=== PATIENT | male | born 1930 | race Caucasian/White ===

== ENCOUNTER 2017-03-06 17:06 | Inpatient (IN) | payer MEDICARE, BC ==
[~2017-03-06] VITALS: Ht 179.1 cm; Wt 80.5 kg
[~2017-03-06 17:06] MED LIST: ASPI81 PO; AVOD0.5C PO; MULT-65 PO; OMEP20TA PO; ROSU5 PO
[2017-03-06 17:20] VITALS: BP 156/70; PULSE 92; RESP 18; TEMP 98.1; O2SAT 98
[2017-03-06] MEDS ORDERED: ONDANSETRON HCL 4 MG/2 ML VIAL ONE (17:44)
[2017-03-06] MEDS ORDERED: ONDANSETRON HCL 4 MG/2 ML VIAL IV PUSH ONE ×2 (17:45→18:30)
[2017-03-06 18:07] VITALS: BP 159/74; PULSE 85; RESP 15; O2SAT 94
[2017-03-06] MEDS ORDERED: AVOD0.5C PO (18:11)
[2017-03-06] MEDS ORDERED: ASPI-437 PO (18:11)
[2017-03-06 18:52] LABS: AUTOMATED NEUTROPHIL # 6.8 TH/MM3 (1.8-7.7); BASOPHIL % 0.4 % (0.0-2.0); EOSINOPHIL # 0.3 TH/MM3 (0-0.4); EOSINOPHIL % 3.8 % (0.0-4.0); HEMO FLAGS DIFF FINAL; LYMPH % 8.7 % (9.0-44.0); LYMPHOCYTE # 0.7 TH/MM3 (1.0-4.8); MEAN CELL VOLUME 81.7 FL (80.0-100.0); MONO % 5.6 % (0.0-8.0); NEUT % 81.5 % (16.0-70.0); PLATELET COUNT 196 TH/MM3 (150-450); RED BLOOD COUNT 3.91 MIL/MM3 (4.50-5.90); RED CELL DISTRIBUTION WIDTH 16.9 % (11.6-17.2); WHITE BLOOD COUNT 8.4 TH/MM3 (4.0-11.0)
[2017-03-06 19:15] LABS: APTT (PATIENT) 20.7 SEC (24.3-30.1); PROTHROMBIN TIME - PATIENT 10.5 SEC (9.8-11.6)
[2017-03-06 19:21] LABS: BICARBONATE 25.1 MEQ/L (21.0-32.0); MAGNESIUM 2.4 MG/DL (1.5-2.5); POTASSIUM 4.1 MEQ/L (3.5-5.1)
--- NOTE | 2017-03-06 19:43 | RADRPT ---
EXAM DATE/TIME: 03/06/2017 19:32 [facility] COMPARISON: No previous studies available for comparison. INDICATIONS : Trauma; fall. RADIATION DOSE: 36.24 CTDIvol (mGy) MEDICAL HISTORY : Cardiovascular disease. Carcinoma, prostate. SURGICAL HISTORY : Appendectomy. Cholecystectomy.cardiac stents ENCOUNTER: Initial ACUITY: 1 day PAIN SCALE: 7/10 LOCATION: cranial TECHNIQUE: Multiple contiguous axial images were obtained of the head. Using automated exposure control and adj ustment of the mA and/or kV according to patient size, radiation dose was kept as low as reasonably a chievable to obtain optimal diagnostic quality images. DICOM format image data is available electro nically for review and comparison. FINDINGS: CEREBRUM: Mild cerebral atrophy is noted. No evidence of midline shift, mass lesion, hemorrhage or acute infarc tion. No extra-axial fluid collections are seen. POSTERIOR FOSSA: The cerebellum and brainstem are intact. The 4th ventricle is midline. The cerebellopontine angle i s unremarkable. EXTRACRANIAL: The visualized portion of the orbits is intact. SKULL: The calvaria is intact. No evidence of skull fracture. CONCLUSION: 1. Mild cerebral atrophy. 2. No acute infarct, acute hemorrhage, mass effect or extra-axial fluid collections. Vahe Saini MD on March 06, 2017 at 19:40 Board Certified Radiologist. This report was verified electronically.
--- NOTE | 2017-03-06 19:50 | RADRPT ---
EXAM DATE/TIME: 03/06/2017 19:06 [facility] COMPARISON: No previous studies available for comparison. INDICATIONS : Trauma/ Fall from ladder MEDICAL HISTORY : Prostate CA SURGICAL HISTORY : Appendectomy. Cholecystectomy. ENCOUNTER: Initial ACUITY: 1 day PAIN SCORE: 0/10 LOCATION: Left ankle FINDINGS: Three view exam was performed of the left ankle. The bony structures are in normal alignment. No ev idence of fracture, dislocation, or soft tissue swelling. The ankle mortise is intact. Achilles saskia caneal spurring is noted. No radiopaque foreign bodies are seen. Bony mineralization is normal. CONCLUSION: Achilles calcaneal spurring. No acute fracture or dislocation. Vahe Saini MD on March 06, 2017 at 19:48 Board Certified Radiologist. This report was verified electronically.
--- NOTE | 2017-03-06 19:52 | RADRPT ---
EXAM DATE/TIME: 03/06/2017 19:04 [facility] COMPARISON: No previous studies available for comparison. INDICATIONS : Trauma/ fall from ladder MEDICAL HISTORY : Prostate ca SURGICAL HISTORY : Appendectomy. Cholecystectomy. ENCOUNTER: Initial ACUITY: 1 day PAIN SCORE: 0/10 LOCATION: Bilateral chest FINDINGS: A single view of the chest demonstrates the lungs to be symmetrically aerated without evidence of mas s, infiltrate or effusion. The cardiomediastinal contours are unremarkable. Osseous structures are intact. CONCLUSION: No acute disease. Vahe aSini MD on March 06, 2017 at 19:51 Board Certified Radiologist. This report was verified electronically.
--- NOTE | 2017-03-06 20:01 | RADRPT ---
EXAM DATE/TIME: 03/06/2017 19:22 [facility] COMPARISON: KNEE LEFT COMPLETE (4VWS), March 06, 2017, 19:12. INDICATIONS : Trauma/ fall from a ladder MEDICAL HISTORY : Prostate CA SURGICAL HISTORY : Appendectomy. Cholecystectomy. ENCOUNTER: Initial ACUITY: 1 day PAIN SCORE: 0/10 LOCATION: Left Tib/Fib FINDINGS: There is an acute mildly displaced left proximal tibial and lateral tibial plateau fracture. CONCLUSION: 1. Acute mildly displaced left proximal tibial and lateral tibial plateau fracture. Vahe Saini MD on March 06, 2017 at 19:53 Board Certified Radiologist. This report was verified electronically.
--- NOTE | 2017-03-06 20:22 | RADRPT ---
EXAM DATE/TIME: 03/06/2017 19:12 [facility] COMPARISON: No previous studies available for comparison. INDICATIONS : Pain/ fall off of a ladder MEDICAL HISTORY : Prostate CA SURGICAL HISTORY : Appendectomy. Cholecystectomy. ENCOUNTER: Initial ACUITY: 1 day PAIN SCORE: 0/10 LOCATION: Left knee FINDINGS: There is an acute comminuted mildly displaced fracture involving then lateral tibial plateau which ex tends into the proximal tibia medially. A fat fluid level within the suprapatellar bursa. Mild dege nerative changes are noted involving the patellofemoral joint. CONCLUSION: 1. Acute comminuted mildly displaced fracture involving the lateral tibial plateau extending into th e proximal tibia more medially. 2. Fat fluid level within the suprapatellar bursa. 3. Mild degenerative changes involving the patellofemoral joint. Vahe Saini MD on March 06, 2017 at 19:59 Board Certified Radiologist. This report was verified electronically.
--- NOTE | 2017-03-06 20:23 | PD ---
HPI Chief Complaint: Injury Time Seen by Provider: 18:03 Travel History International Travel<30 days: No Contact w/Intl Traveler<30days: No Traveled to known affect area: No History of Present Illness HPI 87-year-old male that presents to the ED via [facility] for evaluation of fall and injury to his left leg. Patient reports that he was on a ladder of about 3 steps and he fell and his foot got stuck on the step stool and he landed on his left leg. Patient does have obvious deformity and swelling noted on the left leg. And is any numbness, tilling, weakness. Patient was brought here by ambulance. Patient was given 10 mg of morphine on the way here. Per patient the pain with movement is 4 out of 10. With movement and weightbearing is severe 10 out of 10. Per patient the only medical issue he has is a history of prostate cancer for which she follows with a doctor for this. He states that he has no other medical issues. Takes only aspirin. States that he did hit his head but did not lose consciousness. Patient has a very superficial laceration to the left cheek as well as to the left ear. Denies any arm pain. No back pain or neck pain. No hip pain. No problems with the right lower leg. No numbness, tilling, weakness. No bowel movement issues. No allergies to medication. PFSH Past Medical History Cancer: Yes (PROSTATE) High Cholesterol: Yes Coronary Artery Disease: Yes Diabetes: No Diminished Hearing: No Ulcer: Yes Past Surgical History Appendectomy: Yes Cholecystectomy: Yes Coronary Stent: Yes (4 CARDIAC STENTS) Social History Alcohol Use: No Tobacco Use: No Substance Use: No Allergies-Medications (Allergen,Severity, Reaction): Coded Allergies: No Known Allergies (Verified , 03/06/17) Reported Meds & Prescriptions Reported Meds & Active Scripts Active Reported Adult Low Dose Aspirin EC (Aspirin) 81 Mg Tablet.dr 81 Mg PO DAILY Avodart (Dutasteride) 0.5 Mg Cap 0.5 Mg PO DAILY Review of Systems Except as stated in HPI: all other systems reviewed are Neg Physical Exam Narrative GENERAL: SKIN: Warm and dry. HEAD: Atraumatic. Normocephalic. EYES: Pupils equal and round. No scleral icterus. No injection or drainage. ENT: No nasal bleeding or discharge. Mucous membranes pink and moist. Tongue is midline. No uvula deviation. NECK: Trachea midline. No JVD. CARDIOVASCULAR: Regular rate and rhythm. No murmurs, S3, S4. RESPIRATORY: No accessory muscle use. Clear to auscultation. Breath sounds equal bilaterally. GASTROINTESTINAL: Abdomen soft, non-tender, nondistended. Hepatic and splenic margins not palpable. MUSCULOSKELETAL: Extremities without clubbing, cyanosis, or edema. No obvious deformities. Patient has bruising and swelling on the left knee and has a lot of pain especially with flexion of the left knee. Full range of motion of the history of range of motion ankles. No injuries noted on the right knee other than a small abrasion. Patient does have a superficial cut to the left cheek which is about less than half a centimeter. Minimal bleeding. Patient also is an abrasion on the left ear. No lumbar, thoracic, cervical spine tenderness to palpation. Neurovascular intact. 2+ pulses bilaterally. NEUROLOGICAL: Awake and alert. No obvious cranial nerve deficits. Motor grossly within normal limits. Five out of 5 muscle strength in the arms and legs. Normal speech. PSYCHIATRIC: Appropriate mood and affect; insight and judgment normal. Data Data Last Documented VS Vital Signs Date Time Temp Pulse Resp B/P (MAP) Pulse Ox O2 Delivery O2 Flow Rate FiO2 03/06/17 18:07 85 15 159/74 (102) 94 Room Air 03/06/17 17:20 98.1 Orders Orders Knee, Complete (4vws) (03/06/17 ) Tibia/Fibula (Ap/Lat) (03/06/17 ) Ondansetron Inj (Zofran Inj) (03/06/17 17:45) Ondansetron Inj (Zofran Inj) (03/06/17 17:44) Ankle, Complete ([id number]) (03/06/17 ) Electrocardiogram (03/06/17 18:21) Complete Blood Count With Diff (03/06/17 18:21) Basic Metabolic Panel (Bmp) (03/06/17 18:21) Prothrombin Time / Inr (Pt) (03/06/17 18:21) Act Partial Throm Time (Ptt) (03/06/17 18:21) Magnesium (Mg) (03/06/17 18:21) Chest, Single Ap (03/06/17 18:21) Ct Brain W/O Iv Contrast(Rout) (03/06/17 18:21) Iv Access Insert/Monitor (03/06/17 18:21) Ondansetron Inj (Zofran Inj) (03/06/17 18:30) Ct Knee W/O Contrast (03/06/17 ) Splint Or Brace Apply/Monitor (03/06/17 19:46) Electrocardiogram (03/06/17 ) Wound Care (03/06/17 20:26) Tetanus/Diphtheria Tox Adult (Tetanus/Di (03/06/17 20:30) Immobilizer Knee 20 Inch (03/06/17 ) Ice Cuff (03/06/17 ) Admit Order (Ed Use Only) (03/06/17 20:48) Labs Laboratory Tests Test 03/06/17 18:30 White Blood Count 8.4 TH/MM3 Red Blood Count 3.91 MIL/MM3 Hemoglobin 10.6 GM/DL Hematocrit 32.0 % Mean Corpuscular Volume 81.7 FL Mean Corpuscular Hemoglobin 27.0 PG Mean Corpuscular Hemoglobin Concent 33.0 % Red Cell Distribution Width 16.9 % Platelet Count 196 TH/MM3 Mean Platelet Volume 8.1 FL Neutrophils (%) (Auto) 81.5 % Lymphocytes (%) (Auto) 8.7 % Monocytes (%) (Auto) 5.6 % Eosinophils (%) (Auto) 3.8 % Basophils (%) (Auto) 0.4 % Neutrophils # (Auto) 6.8 TH/MM3 Lymphocytes # (Auto) 0.7 TH/MM3 Monocytes # (Auto) 0.5 TH/MM3 Eosinophils # (Auto) 0.3 TH/MM3 Basophils # (Auto) 0.0 TH/MM3 CBC Comment DIFF FINAL Differential Comment Prothrombin Time 10.5 SEC Prothromb Time International Ratio 1.0 RATIO Activated Partial Thromboplast Time 20.7 SEC Blood Urea Nitrogen 17 MG/DL Creatinine 1.25 MG/DL Random Glucose 124 MG/DL Calcium Level 9.2 MG/DL Magnesium Level 2.4 MG/DL Sodium Level 138 MEQ/L Potassium Level 4.1 MEQ/L Chloride Level 105 MEQ/L Carbon Dioxide Level 25.1 MEQ/L Anion Gap 8 MEQ/L Estimat Glomerular Filtration Rate 55 ML/MIN MDM Medical Decision Making Medical Screen Exam Complete: Yes Emergency Medical Condition: Yes Medical Record Reviewed: Yes Interpretation(s) Last Impressions Head CT 03/06/171 Signed Impressions: Service Date/Time: Monday, March 06, 2017 19:32 - CONCLUSION: 1. Mild cerebral atrophy. 2. No acute infarct, acute hemorrhage, mass effect or extra-axial fluid collections. Vahe Saini MD Chest X-Ray 03/06/171820 Signed Impressions: Service Date/Time: Monday, March 06, 2017 19:04 - CONCLUSION: No acute disease. Vahe Saini MD Ankle X-Ray 03/06/17 0000 Signed Impressions: Service Date/Time: Monday, March 06, 2017 19:06 - CONCLUSION: Achilles calcaneal spurring. No acute fracture or dislocation. Vahe Saini MD CBC & BMP Diagram 03/06/17 18:30 Calcium Level 9.2, Magnesium Level 2.[address] 03/06/171820 Signed Impressions: Service Date/Time: Monday, March 06, 2017 19:32 - CONCLUSION: 1. Mild cerebral atrophy. 2. No acute infarct, acute hemorrhage, mass effect or extra-axial fluid collections. Vahe Saini MD Chest X-Ray 03/06/171820 Signed Impressions: Service Date/Time: Monday, March 06, 2017 19:04 - CONCLUSION: No acute disease. Vahe Saini MD Ankle X-Ray 03/06/17 0000 Signed Impressions: Service Date/Time: Monday, March 06, 2017 19:06 - CONCLUSION: Achilles calcaneal spurring. No acute fracture or dislocation. Vahe Saini MD Differential Diagnosis Fracture versus sprain versus strain versus fall versus head injury versus laceration Narrative Course 87-year-old male that presents to the ED for evaluation of injury to his left knee. Patient was properly examined and was found to have signs and symptoms concerning for fracture. X-rays and imaging were ordered. X-rays show fracture of the vertebral plateau of the left leg. Case was discussed in my attending who recommends orthopedic consult. I spoke with Dr. Magana agrees to admission to medicine and consult to him. Nothing by mouth after midnight. Labs were drawn. Chest x-ray as well as EKG were ordered. Case discussed with Dr Osorio who agrees with admission. Diagnosis Primary Impression: Tibial plateau fracture, left Qualified Codes: S82.142A - Displaced bicondylar fracture of left tibia, initial encounter for closed fracture Admitting Information Admitting Physician Requests: Admit Leoncio Forde Mar 06, 2017 20:23
--- NOTE | 2017-03-06 20:26 | RADRPT ---
EXAM DATE/TIME: 03/06/2017 19:36 [facility] COMPARISON: No previous studies available for comparison. INDICATIONS : Trauma; fall. RADIATION DOSE: 7.29 CTDIvol (mGy) MEDICAL HISTORY : Cardiovascular disease. Carcinoma, prostate. SURGICAL HISTORY : Appendectomy. Cholecystectomy. Cardiac stents ENCOUNTER: Initial ACUITY: 1 day PAIN SCALE: 7/10 LOCATION: left knee TECHNIQUE: Volumetric scanning of the knee was performed. Using automated exposure control and adjustment of th e mA and/or kV according to patient size, radiation dose was kept as low as reasonably achievable to obtain optimal diagnostic quality images. DICOM format image data is available electronically for re view and comparison. FINDINGS: There is an acute comminuted mildly displaced fracture involving the lateral tibial plateau which ext ends medially into the proximal tibia. There is approximately 9 mm of lateral displacement of the largest bone fra gment of the tibial plateau fracture. There is also an acute fracture involving the proximal fibula. A fat fluid level is noted within a large suprapatellar effusion. Mild degenerative changes are noted involving the patellofemo ral joint. The distal femur is intact without fracture. The patella is also intact without fracture. CONCLUSION: 1. Acute mildly displaced comminuted fracture involving the lateral tibial plateau which extends med ially into the proximal tibia. There is approximately 9 mm of lateral displacement of the largest fr agment of the plateau. 2. Large suprapatellar knee joint effusion with fat fluid level. 3. Acute fracture involving the proximal fibula. 4. Mild degenerative changes involving the patellofemoral joint. Vahe Saini MD on March 06, 2017 at 20:01 Board Certified Radiologist. This report was verified electronically.
[2017-03-06] MEDS ORDERED: TETANUS/DIPHTHERIA TOXOID ADULT 0.5 ML VIAL IM ONE (20:30)
[2017-03-06 21:00] VITALS: BP 193/88; PULSE 90; RESP 18; TEMP 97.3; O2SAT 96
[2017-03-06] MEDS ORDERED: SODIUM CHLOR 0.9% 1000 ML INJ 1,000 ML IV SCH (21:12)
--- NOTE | 2017-03-06 21:13 | HHI.HP ---
[facility] Unknown Admission Diagnosis acute left tibial plateau fracture Diagnoses: (1) Tibial plateau fracture, left Diagnosis: Principal (2) Prostate CA Diagnosis: Principal (3) HTN (hypertension) Diagnosis: Principal (4) Dehydration Diagnosis: Principal Travel History International Travel<30 Days: No Contact w/Intl Traveler <30 Da: No Traveled to Known Affected Are: No History of Present Illness This is an 87-year-old male with a PMH of Prostate CA, CAD and Hyperlipidemia who was brought to the ER by EMS secondary to left leg pain after a fall. Patient was apparently up on a ladder approximately 3 steps up when he lost his footing and fell onto his left leg. +head trauma. No LOC. On arrival, BP 156/ 70, HR 92, O2 sat 98% on RA, Afebrile. CBC at baseline. Chemistry unremarkable exam for GFR 55. INR 1.0. CT Head with mild cerebral atrophy, no acute findings. CXR negative. Ankle X-ray Achilles calcaneal spurring, no acute fracture. Knee X-ray acute comminuted mildly displaced fracture involving the lateral tibial plateau. Dr. Magana consulted by ER physician, plan is for surgical intervention in a.m. Review of Systems Except as stated in HPI: all other systems reviewed are Neg ROS: 14 point review of systems otherwise negative. Past Family Social History Past Medical History PMH: Prostate CA, CAD and Hyperlipidemia Past Surgical History PAST SURGICAL HISTORY: Appendectomy, Cholecystectomy, Cardiac Stent Allergies: Coded Allergies: No Known Allergies (Verified , 03/06/17) Family History PAST FAMILY HISTORY: Reviewed. No h/o DM or CAD Social History PAST SOCIAL HISTORY: Negative for alcohol, tobacco or drugs. Physical Exam Vital Signs Vital Signs Date Time Temp Pulse Resp B/P (MAP) Pulse Ox O2 Delivery O2 Flow Rate FiO2 03/06/17 18:07 85 15 159/74 (102) 94 Room Air 03/06/17 17:20 98.1 92 18 156/70 (98) 98 Physical Exam PE: GENERAL: Very pleasant elderly white male in no acute distress. HEENT: PERRLA, EOMI. No scleral icterus or conjunctival pallor. No lid lag or facial droop. CARDIOVASCULAR: Regular rate and rhythm. No obvious murmurs to auscultation. No chest tenderness to palpation. RESPIRATORY: No obvious rhonchi or wheezing. Clear to auscultation. Breath sounds equal bilaterally. GASTROINTESTINAL: Abdomen soft, non-tender, nondistended. BS normal. MUSCULOSKELETAL: Extremities without clubbing, cyanosis, or edema. No obvious deformities. Decreased ROM of LLE due to injury. Pulses intact. NEUROLOGICAL: Awake, alert and oriented x4. No focal neurologic deficits. Moving both upper and lower extremities spontaneously. Laboratory Laboratory Tests Test 03/06/17 18:30 White Blood Count 8.4 Red Blood Count 3.91 Hemoglobin 10.6 Hematocrit 32.0 Mean Corpuscular Volume 81.7 Mean Corpuscular Hemoglobin 27.0 Mean Corpuscular Hemoglobin Concent 33.0 Red Cell Distribution Width 16.9 Platelet Count 196 Mean Platelet Volume 8.1 Neutrophils (%) (Auto) 81.5 Lymphocytes (%) (Auto) 8.7 Monocytes (%) (Auto) 5.6 Eosinophils (%) (Auto) 3.8 Basophils (%) (Auto) 0.4 Neutrophils # (Auto) 6.8 Lymphocytes # (Auto) 0.7 Monocytes # (Auto) 0.5 Eosinophils # (Auto) 0.3 Basophils # (Auto) 0.0 CBC Comment DIFF FINAL Differential Comment Prothrombin Time 10.5 Prothromb Time International Ratio 1.0 Activated Partial Thromboplast Time 20.7 Blood Urea Nitrogen 17 Creatinine 1.25 Random Glucose 124 Calcium Level 9.2 Magnesium Level 2.4 Sodium Level 138 Potassium Level 4.1 Chloride Level 105 Carbon Dioxide Level 25.1 Anion Gap 8 Estimat Glomerular Filtration Rate 55 Result Diagram: 03/06/17182903/06/171829 Caprini VTE Risk Assessment Caprini VTE Risk Assessment: Mod/High Risk (score >= 2) Caprini Risk Assessment Model Point Value = 1 Point Value = 2 Point Value = 3 Point Value = 5 Age 41-60 Minor surgery BMI > 25 kg/m2 Swollen legs Varicose veins or History of unexplained or recurrent spontaneous Oral contraceptives or hormone replacement Sepsis (< 1 month) Serious lung disease, including pneumonia (< 1 month) Abnormal pulmonary function Acute myocardial infarction Congestive heart failure (< 1 month) History of inflammatory bowel disease Medical patient at bed rest Age 61-74 Arthroscopic surgery Major open surgery (> 45 min) Laparoscopic surgery (> 45 min) Malignancy Confined to bed (> 72 hours) Immobilizing plaster cast Central venous access Age >= 75 History of VTE Family history of VTE Factor V Leiden Prothrombin [id number] Lupus anticoagulant Anticardiolipin antibodies Elevated serum homocysteine Heparin-induced thrombocytopenia Other congenital or acquired thrombophilia Stroke (< 1 month) Elective arthroplasty Hip, pelvis, or leg fracture Acute spinal cord injury (< 1 month) Prophylaxis Regimen Total Risk Factor Score Risk Level Prophylaxis Regimen 0-1 Low Early ambulation 2 Moderate Order ONE of the following: *Sequential Compression Device (SCD) *Heparin 5000 units SQ BID 3-4 Higher Order ONE of the following medications: *Heparin 5000 units SQ TID *Enoxaparin/Lovenox 40 mg SQ daily (WT < 150 kg, CrCl > 30 mL/min) *Enoxaparin/Lovenox 30 mg SQ daily (WT < 150 kg, CrCl > 10-29 mL/min) *Enoxaparin/Lovenox 30 mg SQ BID (WT < 150 kg, CrCl > 30 mL/min) AND/OR *Sequential Compression Device (SCD) 5 or more Highest Order ONE of the following medications: *Heparin 5000 units SQ TID (Preferred with Epidurals) *Enoxaparin/Lovenox 40 mg SQ daily (WT < 150 kg, CrCl > 30 mL/min) *Enoxaparin/Lovenox 30 mg SQ daily (WT < 150 kg, CrCl > 10-29 mL/min) *Enoxaparin/Lovenox 30 mg SQ BID (WT < 150 kg, CrCl > 30 mL/min) AND *Sequential Compression Device (SCD) Assessment and Plan Problem List: (1) Tibial plateau fracture, left ICD Code: S82.142A - Displaced bicondylar fracture of left tibia, initial encounter for closed fracture Status: Acute (2) Dehydration ICD Code: E86.0 - Dehydration (3) HTN (hypertension) ICD Code: I10 - Essential (primary) hypertension (4) Prostate CA ICD Code: C61 - Malignant neoplasm of prostate Assessment and Plan A/P: 1. Left Tibial Plateau Fx: s/p mechanical fall from 3rd step of ladder, +head trauma, no LOC. CT Head w/ no acute findings, images reviewed by me. Knee X- ray w/ acute comminuted mildly displaced fracture of lateral tibial plateau, images reviewed by me. Her Amie consulted by ER physician, plan is for surgical intervention in a.m. NPO, IVF, analgesics/antiemetics as needed. 2. Dehydration: GFR 55, BUN/Creatinine normal. IVF for hydration, repeat labs in am. 3. HTN: BP 150-170's, likely compounded by pain, optimized pain control. Monitor BP. 4. Prostate CA: at baseline, resume home medications. 5. DVT Prophylaxis: Anticoagulation post-op per Ortho. 6. Social work for d/c planning as needed. 7. Case discussed w/ ER physician at length. Physician Certification 2 Midnight Certification Type: Admission for Inpatient Services Order for Inpatient Services The services are ordered in accordance with Medicare regulations or non- Medicare payer requirements, as applicable. In the case of services not specified as inpatient-only, they are appropriately provided as inpatient services in accordance with the 2-midnight benchmark. Estimated LOS (days): 2 days is the estimated time the patient will need to remain in the hospital, assuming treatment plan goals are met and no additional complications. Post-Hospital Plan: Not yet determined Problem Qualifiers (1) Tibial plateau fracture, left: Qualified Codes: S82.142A - Displaced bicondylar fracture of left tibia, initial encounter for closed fracture Kendra Osorio MD Mar 06, 2017 21:13
[2017-03-06] MEDS ORDERED: ACETAMINOPHEN 325 MG TAB PO PRN (21:15)
[2017-03-06] MEDS ORDERED: SODIUM CHLORIDE 0.9% FLUSH 10 ML FLUSH IV FLUSH PRN (21:15)
[2017-03-06] MEDS ORDERED: MORPHINE SULFATE 4 MG/ML INJ IV PUSH PRN (21:15)
[2017-03-06] MEDS ORDERED: SENNOSIDES 8.6 MG TAB PO PRN (21:15)
[2017-03-06] MEDS ORDERED: MAGNESIUM HYDROXIDE SUSP 30 ML CUP PO PRN (21:15)
[2017-03-06] MEDS ORDERED: BISACODYL 10 MG SUPP RECTAL PRN (21:15)
[2017-03-06] MEDS ORDERED: ACETAMINOPHEN/HYDROcodone 325 MG/5 MG TAB PO PRN (21:15)
[2017-03-06] MEDS ORDERED: ONDANSETRON HCL 4 MG/2 ML VIAL IVP PRN (21:15)
[2017-03-06] MEDS ORDERED: LACTULOSE SYRUP 20 GM/30 ML CUP PO PRN (21:15)
[2017-03-06 21:32] VITALS: BP 174/79; PULSE 82; RESP 16; O2SAT 97
[2017-03-07 00:16] VITALS: BP 163/77; PULSE 83; RESP 18; TEMP 98.1; O2SAT 95
[2017-03-07 04:04] VITALS: BP 176/84; PULSE 86; RESP 18; TEMP 97.7; O2SAT 97
[2017-03-07 05:11] LABS: ALKALINE PHOSPHATASE 78 U/L (45-117); ALT (GPT) 36 U/L (12-78); TOTAL BILIRUBIN ADULT 0.5 MG/DL (0.2-1.0)
[2017-03-07 05:12] LABS: ANION GAP 6 MEQ/L (5-15); AST (GOT) 34 U/L (15-37); BICARBONATE 26.4 MEQ/L (21.0-32.0); BLOOD UREA NITROGEN 15 MG/DL (7-18); CHLORIDE 105 MEQ/L (98-107); GLOMERULAR FILTRATION RATE 52 ML/MIN (>89); POTASSIUM 4.5 MEQ/L (3.5-5.1); SODIUM (NA) 137 MEQ/L (136-145)
[2017-03-07 05:31] LABS: AUTOMATED NEUTROPHIL # 9.1 TH/MM3 (1.8-7.7); BASOPHIL % 0.2 % (0.0-2.0); EOSINOPHIL % 0.2 % (0.0-4.0); HEMATOCRIT 32.8 % (39.0-51.0); HEMO FLAGS DIFF FINAL; LYMPH % 7.5 % (9.0-44.0); LYMPHOCYTE # 0.8 TH/MM3 (1.0-4.8); MEAN CELL VOLUME 81.7 FL (80.0-100.0); MEAN CORPUSCULAR HEMOGLOBIN 26.9 PG (27.0-34.0); MEAN CORPUSCULAR HGB CONC 32.9 % (32.0-36.0); MONO % 3.5 % (0.0-8.0); NEUT % 88.6 % (16.0-70.0); PLATELET COUNT 204 TH/MM3 (150-450); RED BLOOD COUNT 4.02 MIL/MM3 (4.50-5.90); WHITE BLOOD COUNT 10.2 TH/MM3 (4.0-11.0)
[2017-03-07] MEDS ORDERED: METOPROLOL TARTRATE 25 MG TAB PO PRN (05:45)
[2017-03-07] MEDS ORDERED: POVIDONE IODINE 5% (ANTISEPSIS KIT) 4 APPLICATIONS EACH NARE PRN (05:45)
[2017-03-07] MEDS ORDERED: CHLORHEXIDINE GLUCONATE 2 % 1 PACK (2 CLOTHS) TOPICAL PRN (05:45)
[2017-03-07] MEDS ORDERED: SODIUM CHLORID 0.9% 500 ML IV PRN (05:45)
[2017-03-07] MEDS ORDERED: LACTATED RINGER'S 1000 ML IV PRN (05:45)
[2017-03-07] MEDS ORDERED: INSULIN HUMAN REGULAR 1,000 UNITS/10 ML VIAL SQ PRN (05:45)
[2017-03-07 08:00] VITALS: BP 184/86; PULSE 89; RESP 18; TEMP 97.9; O2SAT 94
[2017-03-07] MEDS ORDERED: DOCUSATE SODIUM 50 MG/SENNA 8.6 MG TAB PO SCH (09:00)
[2017-03-07] MEDS: FINASTERIDE 5 MG TAB PO SCH (09:00)
[2017-03-07] MEDS ORDERED: SODIUM CHLORIDE 0.9% FLUSH 10 ML FLUSH IV FLUSH SCH (09:00)
[2017-03-07] MEDS ORDERED: ENALAPRILAT 1.25 MG/ML VIAL IV PUSH PRN (10:45)
[2017-03-07 12:00] VITALS: BP 190/86; PULSE 81; RESP 19; TEMP 97.2; O2SAT 94
[2017-03-07] MEDS ORDERED: ONDANSETRON HCL 4 MG/2 ML VIAL IV PUSH ONE (12:00)
[2017-03-07] MEDS ORDERED: PROPOFOL 200 MG/20 ML AMP IV ONE (12:00)
[2017-03-07] MEDS ORDERED: NEOSTIGMINE 3 MG/3 ML SYR IV ONE (12:00)
[2017-03-07] MEDS ORDERED: DEXAMETHASONE SOD PHOS 4 MG/ML VIAL IV ONE (12:00)
[2017-03-07] MEDS ORDERED: ROCURONIUM INJ 50 MG/5 ML SYRINGE IV PUSH ONE (12:00)
[2017-03-07] MEDS ORDERED: ePHEDrine/NS 25 MG/5 ML SYR IV ONE (12:00)
[2017-03-07] MEDS ORDERED: GLYCOPYRROLATE 1 MG/5 ML SYRINGE IV PUSH ONE (12:00)
[2017-03-07] MEDS ORDERED: LACTATED RINGER'S 1000 ML INJ 1,000 ML IV ONE (12:00)
[2017-03-07] MEDS ORDERED: PHENYLEPH/NS 1000 MCG/10 ML SYR IV ONE (12:00)
[2017-03-07] MEDS ORDERED: LIDOCAINE HCL 1% PF 5 ML AMPULE OTHER ONE (12:00)
[2017-03-07] MEDS: LISINOPRIL 10 MG TAB PO SCH (12:48)
--- NOTE | 2017-03-07 13:17 | MB ---
cc: JUNE PEREZ M.D. DATE OF CONSULTATION: 03/07/2017 REASON FOR CONSULTATION: Left tibial plateau fracture. HISTORY OF PRESENT ILLNESS: The patient is an 87 year-old man who has a history of prostate cancer, coronary artery disease, hyperlipidemia who was brought to the emergency room after he had a fall. The patient was up on a ladder, about three steps up. He lost his footing and fell onto the left leg. He noticed immediate pain about the leg, he was unable to ambulate, pain was severe. He was brought to [facility] where he had x-rays and was found to have tibial plateau fracture and a CT scan was ordered, the patient states that he has not had any previous problems with the knee in the past. He denies any new numbness of tingling radiating down the leg. The patient did have a head injury but had a negative CT scan preformed. He had x-rays of the ankle which were unremarkable as well. The Emergency room physician contacted me and recommended admission to the hospital and placed into a cold machine. REVIEW OF SYSTEMS 12 point review of systems is negative except as noted in the history of present illness. FAMILY HISTORY: Noncontributory. PAST SURGICAL HISTORY: 1. Appendectomy. 2. Cholecystectomy. 3. Cardiac stent. ALLERGIES NO KNOWN DRUG ALLERGIES SOCIAL HISTORY: The patient does not smoke or drink alcohol. PHYSICAL EXAMINATION: VITAL SIGNS: The patients temperature is 97.9, pulse 89, respirations 18, blood pressure 184/86. The patient is awake, alert and oriented, times three. Has normal affect, insight and judgment. He is in no acute distress. He has family members at the bedside. His head is atraumatic. NECK: The neck is supple. Oropharynx is moist. Extraocular muscles intact. HEART: Regular rate and rhythm. LUNGS: Clear to auscultation bilaterally. ABDOMEN: Soft, nontender, nondistended. BACK: The back shows no costovertebral angle tenderness. EXTREMITIES: The left lower extremity is currently in a canvas knee splint with a cold machine applied. The patient can move the toes and ankle well. He has 2+ dorsalis pedis pulse. He has no obvious swelling down by the ankle or the mid aspect of the calf. The right lower extremity has no tenderness, normal alignment about the knee and ankle. The patient has good range of motion actively of the bilateral upper extremities. LABORATORY FINDINGS: The labs show a white blood cell count of 8.4. Hematocrit 32.0, platelets 196. Glucose 124, creatinine 1.25. INR is 1.0. RADIOLOGIC: I have reviewed the x-ray images and the reports for the ankle, the knee the tibia and fibula and also the CT scan revealed that the patient has a bicondylar tibial plateau fracture that is comminuted, it is displaced. No arterial depression on the lateral size. The head CT report reads mild cervical atrophy with no acute infarct, hemorrhage or mass effect. IMPRESSION: Left bicondylar tibial plateau fracture, displaced and depressed. DECISION MAKING: This is a complex situation for the patient we discussed the severity of the nature of this type of injury. We discussed about nonoperative management. I am concerned that nonoperative management has a high risk for facture displacement and also there is a very significant chance for developing post traumatic arthritis especially given some of the displacement and also with the depression of the articular surface. We did discuss the option of surgical management which consists of closed reduction and internal fixation versus open reduction, internal fixation. He understand that if with the swelling we may move forward with the closed reduction and surgery may need to be done in a staged type of fashion. He understands that there are serious risks with surgical management however, with nonoperative management there is a significant chance of having long-term disfunction of the leg and difficulty with ambulation or pain with ambulation. He understands the risks of surgery include but are not limited to nerves, blood vessels, bleeding, infection, failure of hardware, need for reoperation. Continued pain, loss of motion, associated joints. Deep venous thrombosis, pulmonary embolism, pneumonia and . The patient does want to move forward with surgical management. All questions have been answered. MD DAVID Cano/johnathon /12:49 PM /12:55 PM
--- NOTE | 2017-03-07 13:22 | HHI.PR ---
Subjective Remarks Patient resting in bed, stated pain is controlled Going for surgery today He told me he has been active he cut the grass and used a goal, he is able to walk more than 2 blocks with no chest pain or short of breath Objective Vitals Vital Signs Date Time Temp Pulse Resp B/P (MAP) Pulse Ox O2 Delivery O2 Flow Rate FiO2 03/07/17 08:00 97.9 89 18 184/86 (118) 94 03/07/17 04:04 97.7 86 18 176/84 (114) 97 03/07/17 00:16 98.1 83 18 163/77 (105) 95 03/06/17 22:26 03/06/17 21:32 82 16 174/79 (110) 97 03/06/17 21:00 97.3 90 18 193/88 (123) 96 03/06/17 18:07 85 15 159/74 (102) 94 Room Air 03/06/17 17:20 98.1 92 18 156/70 (98) 98 I/O 03/06/17 03/06/17 03/06/17 03/07/17 03/07/17 03/07/17 07:00 15:00 23:00 07:00 15:00 23:00 Intake Total 0 ml Output Total 600 ml Balance -600 ml Intake Oral 0 ml Output Urine Total 600 ml # Bowel Movements 0 Result Diagram: 03/07/1740303/07/17 040 Objective Remarks GENERAL: This is a well-nourished, well-developed patient, in no apparent distress. SKIN: No rashes, warm and dry HEAD: Atraumatic. Normocephalic. EYES: Pupils equal round and reactive. Extraocular motions intact. No scleral icterus. ENT: Nose without bleeding, or drainage, Airway patent. NECK: Trachea midline. Supple CARDIOVASCULAR: Regular rate and rhythm without murmurs, gallops, or rubs. RESPIRATORY: Fair air entry bilaterally. No wheezes, rales, or rhonchi. GASTROINTESTINAL: Abdomen soft, non-tender, nondistended. Positive bowel sounds MUSCULOSKELETAL: Extremities without clubbing, cyanosis, or edema. Pedal pulses appreciated, left leg in stabilizer NEUROLOGICAL: Awake and alert. Moves all extremity. Normal speech.no focal neurological deficit A/P Problem List: (1) Tibial plateau fracture, left ICD Code: S82.142A - Displaced bicondylar fracture of left tibia, initial encounter for closed fracture Status: Acute (2) Dehydration ICD Code: E86.0 - Dehydration (3) HTN (hypertension) ICD Code: I10 - Essential (primary) hypertension (4) Prostate CA ICD Code: C61 - Malignant neoplasm of prostate Assessment and Plan 1. Left Tibial Plateau Fx: s/p mechanical fall from 3rd step of ladder, +head trauma, no LOC. CT Head w/ no acute findings, images reviewed by me. Knee X- ray w/ acute comminuted mildly displaced fracture of lateral tibial plateau, appreciate ortho consultation , plan for surgical intervention hopefully this afternoon NPO, IVF, analgesics/antiemetics as needed. 2. Dehydration: Improved, monitor BMP 3. HTN: Still not controlled I will add lisinopril and Vasotec as needed 4. Prostate CA: at baseline, resume home medications. 5. DVT Prophylaxis: Anticoagulation post-op per Ortho. 6. Social work for d/c planning as needed. Problem Qualifiers (1) Tibial plateau fracture, left: Qualified Codes: S82.142A - Displaced bicondylar fracture of left tibia, initial encounter for closed fracture Anurag Haney MD Mar 07, 2017 13:22
[2017-03-07] MEDS ORDERED: ceFAZolin 2 GM PREMIX 50 ML ONE (13:41)
[2017-03-07] MEDS ORDERED: GENTAMICIN SULFATE 80 MG/2 ML VIAL ONE (13:41)
[2017-03-07] MEDS ORDERED: VANCOMYCIN HCL 1000 MG VIAL ONE (13:42)
[2017-03-07] MEDS ORDERED: TRANEXAMIC ACID INJ 1,000 MG/10 ML AMP ONE (13:51)
[2017-03-07] MEDS ORDERED: MORPHINE SULFATE 4 MG/ML INJ IV PUSH PRN (15:45)
[2017-03-07] MEDS ORDERED: ACETAMINOPHEN/HYDROcodone 325 MG/5 MG TAB PO PRN (15:45)
[2017-03-07] MEDS ORDERED: SODIUM CHLORIDE 0.9% FLUSH 5 ML FLUSH IVF PRN (15:45)
[2017-03-07] MEDS ORDERED: diphenhydrAMINE HCL 25 MG CAP PO PRN (15:45)
[2017-03-07] MEDS ORDERED: MISCELLANEOUS NURSING INFORMATION XX PRN (15:45)
[2017-03-07] MEDS ORDERED: NALOXONE HCL 0.4 MG/ML AMP IV PRN (15:45)
[2017-03-07] MEDS ORDERED: Post-op Orders (for Pharmacy) MISC XX ONE (15:45)
[2017-03-07] MEDS ORDERED: MAGNESIUM HYDROXIDE SUSP 30 ML CUP PO PRN (15:45)
[2017-03-07] MEDS ORDERED: ONDANSETRON HCL 4 MG/2 ML VIAL IVP PRN (15:45)
[2017-03-07] MEDS ORDERED: MISCELLANEOUS PHARMACY INFORMATION XX ONE (15:45)
--- NOTE | 2017-03-07 15:53 | PD.OP ---
cc: Mg Magana MD Operative Report Date of Surgery: Mar 07, 2017 Preoperative Diagnosis: Left bicondylar tibial plateau fracture. Postoperative Diagnosis: Same Procedure: Left bicondylar tibial plateau fracture open reduction and internal fixation Anesthesia: Gen. Surgeon: Mg Magana Patient Access Manager(s): CLINT Whaley The surgical procedure was assisted by my Advanced Registered Nurse Practitioner. My PATENT LITIGATION ASSOCIATE presence was necessary throughout this case for the manipulation and positioning of the surgical extremity. My PATENT LITIGATION ASSOCIATE was assisting me throughout the duration of this procedure. The skill set of an Advance Registered Nurse Practitioner was medically necessary to complete this procedure. During the surgical case, the surgical dressing maker was working at the back table and the Advance Registered Nurse Practitioner was directly assisting me. Operation and Findings: Estimated blood loss: 200 cc. Tourniquet time: 0 minutes. Implants: Synthes precontoured proximal tibia plate. Patient was brought to the operative theater. Gen. anesthesia was administered. The patient received intravenous vancomycin and Ancef. The left lower extremity was prepped and draped in usual sterile fashion. There was only mild swelling of the compartments. We made standard curvilinear incision along the lateral aspect of the leg. The skin and subcutaneous tissue were rather thin and did not have significant adherence to the underlying fascia. We incised through the deep fascia of the tibialis anterior musculature. We reflected the muscle off of the bone. We paid particular attention to keep the dissection anterior and proximal to the fibular head to not disturb the peroneal nerve. We pulled traction on the leg and used a joker elevator through the lateral fracture plane to elevate the depressed portion of the lateral tibial plateau articular surface. We achieved anatomic alignment of both the medial and lateral tibial plateau. We secured the tibial plateau plate using a nonlocking hole to pull the plate down to the bone. We then used fluoroscopic guidance to place 6 proximal locking screws followed by 2 rafting screws and then we completed with locking screws into the shaft. This gave us a total of 6 screws that were locking and went over to the medial tibial condyle. We had the distribution of the screws as well on the lateral. We did consider opening the medial side to place a buttress plate. However given the 6 screws in position we felt that this gave us very good fixation. We will also concerned as far as wound issues on the medial side since the skin was very thin and we had to consider this as far as possible complications. Final fluoroscopic imaging was obtained showing excellent position with no intra -articular penetration of the hardware. The wound was thoroughly irrigated. Deep fascia was closed with 0 Vicryl. Skin was closed with 2-0 Vicryl followed by hu. Postoperative plan is nonweightbearing with a canvas knee splint. We would like a period of immobilization as well. Depending on healing we may start range of motion summer between 3 and 6 weeks. Chemical DVT prophylaxis with Lovenox followed by aspirin. Mg Magana MD Mar 07, 2017 15:53
[2017-03-07] MEDS ORDERED: ENOX40IN SQ (15:55)
[2017-03-07] MEDS ORDERED: NORC5TAB PO (15:55)
[2017-03-07] MEDS ORDERED: ASPI-146 PO (15:55)
[2017-03-07 16:00] VITALS: BP 146/70; PULSE 84; RESP 17; TEMP 96.7; O2SAT 96
--- NOTE | 2017-03-07 16:10 | EKG ---
Date Performed: 03/06/2017 Time Performed: 18:33:46 PTAGE: 87 years EKG: Sinus rhythm Compared to prior tracing no significant change NORMAL ECG PREVIOUS TRACING : 12/06/2013 21.33 DOCTOR: Raf Alicea Interpretating Date/Time 03/07/2017 16:10:14
[2017-03-07] MEDS: DEXT 5%-NACL 0.45% 1000 ML INJ 1,000 ML IV SCH (16:27)
[2017-03-07] MEDS ORDERED: *morphine SULFATE 8 MG/ML PERIprocedure ONLY ONE (16:28)
--- NOTE | 2017-03-07 16:30 | RADRPT ---
EXAM DATE/TIME: 03/07/2017 15:31 [place] COMPARISON: No previous studies available for comparison. INDICATIONS : Open reduction internal fixation of the left knee. MEDICAL HISTORY : None. SURGICAL HISTORY : None. ENCOUNTER: Subsequent ACUITY: 2 days PAIN SCORE: Non-responsive. LOCATION: Left knee. FINDINGS: Multiple views of the left knee were obtained and demonstrate the patient status post open rigid inte rnal fixation with screw-plate fixation device transfixing the proximal tibial fracture. The fracture fragments are in near-anatomic alignment. CONCLUSION: Status post open rigid internal fixation. Golden Quigley MD on March 07, 2017 at 16:28 Board Certified Radiologist. This report was verified electronically.
[2017-03-07] MEDS ORDERED: DO NOT ADM ANY ANTICOAGULANT DRUGS PRN (16:45)
[2017-03-07 20:16] VITALS: BP 155/67; PULSE 90; RESP 17; TEMP 97.2; O2SAT 96
[2017-03-07] MEDS: DOCUSATE SODIUM 50 MG/SENNA 8.6 MG TAB PO SCH (20:56)
[2017-03-07] MEDS: SODIUM CHLORIDE 0.9% FLUSH 5 ML FLUSH IVF SCH (20:57)
[2017-03-08] VITALS (7 sets, daily range): BP systolic 137–191; BP diastolic 64–79; PULSE 87–100; RESP 17–18; TEMP 96.7–97.7; O2SAT 92–97
[2017-03-08] MEDS: DEXT 5%-NACL 0.45% 1000 ML INJ 1,000 ML IV SCH ×3 (03:58→21:45)
[2017-03-08 07:10] LABS: AUTOMATED NEUTROPHIL # 8.2 TH/MM3 (1.8-7.7); BASOPHIL % 0.1 % (0.0-2.0); EOSINOPHIL % 0.3 % (0.0-4.0); HEMATOCRIT 29.7 % (39.0-51.0); HEMO FLAGS DIFF FINAL; LYMPH % 8.5 % (9.0-44.0); LYMPHOCYTE # 0.8 TH/MM3 (1.0-4.8); MEAN CELL VOLUME 81.4 FL (80.0-100.0); MEAN CORPUSCULAR HEMOGLOBIN 26.8 PG (27.0-34.0); MONO % 5.6 % (0.0-8.0); NEUT % 85.5 % (16.0-70.0); PLATELET COUNT 188 TH/MM3 (150-450); RED BLOOD COUNT 3.65 MIL/MM3 (4.50-5.90); WHITE BLOOD COUNT 9.5 TH/MM3 (4.0-11.0)
[2017-03-08] MEDS: SODIUM CHLORIDE 0.9% FLUSH 5 ML FLUSH IVF SCH ×2 (09:00→21:30)
[2017-03-08] MEDS: DOCUSATE SODIUM 50 MG/SENNA 8.6 MG TAB PO SCH ×2 (09:29→21:29)
[2017-03-08] MEDS: MULTIVITAMINS/MINERALS THERAPEUTIC TAB PO SCH (09:30)
[2017-03-08] MEDS: LISINOPRIL 10 MG TAB PO SCH ×2 (09:30→21:29)
[2017-03-08] MEDS: FINASTERIDE 5 MG TAB PO SCH (09:30)
--- NOTE | 2017-03-08 10:55 | PD.ORT.PN ---
Subjective Post Op Day #: 1 Subjective Remarks Patient is OOB in chair with minimal pain to the left knee. Objective Vitals Vital Signs Date Time Temp Pulse Resp B/P (MAP) Pulse Ox O2 Delivery O2 Flow Rate FiO2 03/08/17 08:00 97.5 100 17 191/79 (116) 94 03/08/17 04:19 97.0 98 17 149/70 (96) 97 03/08/17 00:11 97.1 89 17 137/64 (88) 95 03/07/17 20:16 97.2 90 17 155/67 (96) 96 03/07/17 16:56 79 14 149/71 (97) 97 Nasal Cannula 2 03/07/17 16:45 97.6 88 16 154/71 (98) 96 Nasal Cannula 2 03/07/17 16:30 88 16 151/69 (96) 97 Nasal Cannula 2 03/07/17 16:15 84 15 155/73 (100) 97 Nasal Cannula 2 03/07/17 16:10 97.9 101 20 145/67 (93) 96 Nasal Cannula 2 03/07/17 16:00 96.7 84 17 146/70 (95) 96 03/07/17 12:00 97.2 81 19 190/86 (120) 94 I/O 03/07/17 03/07/17 03/07/17 03/08/17 03/08/17 03/08/17 07:00 15:00 23:00 07:00 15:00 23:00 Intake Total 0 ml 0 ml 940 ml 240 ml Output Total 600 ml 330 ml 1000 ml Balance -600 ml 0 ml 610 ml -760 ml Intake Oral 0 ml 0 ml 240 ml 240 ml IV Total 700 ml Output Urine Total 600 ml 300 ml 1000 ml Estimated Blood Loss 30 ml # Voids 2 # Bowel Movements 0 0 0 Result Diagram: 03/08/17 0600 03/07/17 0404 Procedures Left bicondylar tibial plateau fracture open reduction and internal fixation Objective Remarks Dressing is C/D/I. Knee immobilizer is in place. EHL/TA/G intact. 2+ pedal pulse. Calf is soft and nontender. + SILT. Assessment & Plan Ortho Post Op Day #: 1 Problem List: Assessment and Plan POD #1: Left bicondylar tibial plateau fracture open reduction and internal fixation 1. NWB LLE 2. Continue to use knee immobilizer at all times 3. Depending on healing we may start range of motion summer between 3 and 6 weeks. 4. Lovenox followed by ASA for DVT prophylaxis 5. Ice to the left knee PRN 6. F/U with Dr. Magana or CLINT Singh in 1-2 weeks 7. Stable per ortho for discharge home with home health. Robbie Jones Mar 08, 2017 10:55
[2017-03-08] MEDS ORDERED: WALKER WHEELS/F1 MIS (10:57)
[2017-03-08] MEDS ORDERED: WHEEMIS3 (10:57)
[2017-03-08] MEDS ORDERED: COMMODE 3-IN-11 MIS (10:57)
[2017-03-08] MEDS: METOPROLOL TARTRATE 25 MG TAB PO SCH ×2 (11:28→21:30)
[2017-03-08] MEDS: ACETAMINOPHEN/HYDROcodone 325 MG/5 MG TAB PO PRN ×2 (13:25→21:29)
--- NOTE | 2017-03-08 13:50 | HHI.PR ---
Subjective Remarks pain is controlled no headache or blurry vision BP & HR is non optimzed today , i added lopressor , and inc lisinopril Objective Vitals Vital Signs Date Time Temp Pulse Resp B/P (MAP) Pulse Ox O2 Delivery O2 Flow Rate FiO2 03/08/17 08:00 97.5 100 17 191/79 (116) 94 03/08/17 04:19 97.0 98 17 149/70 (96) 97 03/08/17 00:11 97.1 89 17 137/64 (88) 95 03/07/17 20:16 97.2 90 17 155/67 (96) 96 03/07/17 16:56 79 14 149/71 (97) 97 Nasal Cannula 2 03/07/17 16:45 97.6 88 16 154/71 (98) 96 Nasal Cannula 2 03/07/17 16:30 88 16 151/69 (96) 97 Nasal Cannula 2 03/07/17 16:15 84 15 155/73 (100) 97 Nasal Cannula 2 03/07/17 16:10 97.9 101 20 145/67 (93) 96 Nasal Cannula 2 03/07/17 16:00 96.7 84 17 146/70 (95) 96 I/O 03/07/17 03/07/17 03/07/17 03/08/17 03/08/17 03/08/17 07:00 15:00 23:00 07:00 15:00 23:00 Intake Total 0 ml 0 ml 940 ml 240 ml Output Total 600 ml 330 ml 1000 ml Balance -600 ml 0 ml 610 ml -760 ml Intake Oral 0 ml 0 ml 240 ml 240 ml IV Total 700 ml Output Urine Total 600 ml 300 ml 1000 ml Estimated Blood Loss 30 ml # Voids 2 # Bowel Movements 0 0 0 Result Diagram: 03/08/17 0600 03/07/17 0404 Objective Remarks GENERAL: This is a well-nourished, well-developed patient, in no apparent distress. SKIN: No rashes, warm and dry HEAD: Atraumatic. Normocephalic. EYES: Pupils equal round and reactive. Extraocular motions intact. No scleral icterus. ENT: Nose without bleeding, or drainage, Airway patent. NECK: Trachea midline. Supple CARDIOVASCULAR: Regular rate and rhythm without murmurs, gallops, or rubs. RESPIRATORY: Fair air entry bilaterally. No wheezes, rales, or rhonchi. GASTROINTESTINAL: Abdomen soft, non-tender, nondistended. Positive bowel sounds MUSCULOSKELETAL: Extremities without clubbing, cyanosis, or edema. Pedal pulses appreciated, left leg in stabilizer NEUROLOGICAL: Awake and alert. Moves all extremity. Normal speech.no focal neurological deficit A/P Problem List: (1) Tibial plateau fracture, left ICD Code: S82.142A - Displaced bicondylar fracture of left tibia, initial encounter for closed fracture Status: Acute (2) Dehydration ICD Code: E86.0 - Dehydration (3) HTN (hypertension) ICD Code: I10 - Essential (primary) hypertension (4) Prostate CA ICD Code: C61 - Malignant neoplasm of prostate Assessment and Plan 1. Left Tibial Plateau Fx: s/p mechanical fall from 3rd step of ladder, +head trauma, no LOC. CT Head w/ no acute findings, images reviewed by me. Knee X- ray w/ acute comminuted mildly displaced fracture of lateral tibial plateau, appreciate ortho consultation , plan for surgical intervention hopefully this afternoon NPO, IVF, analgesics/antiemetics as needed. 2. Dehydration: Improved, monitor BMP 3. HTN with sinus tachycardia: Still not controlled inc lisinopril , add lopressor Vasotec as needed 4. Prostate CA: at baseline, resume home medications. 5. DVT Prophylaxis: Anticoagulation post-op per Ortho. 6. Social work for d/c planning as needed. Problem Qualifiers (1) Tibial plateau fracture, left: Qualified Codes: S82.142A - Displaced bicondylar fracture of left tibia, initial encounter for closed fracture Anurag Haney MD Mar 08, 2017 13:50
[2017-03-08] MEDS: ENOXAPARIN SODIUM 40 MG/0.4 ML SYRINGE SQ SCH (15:59)
[2017-03-09 00:13] VITALS: BP 128/56; PULSE 86; RESP 18; TEMP 97.9; O2SAT 94
[2017-03-09 03:43] VITALS: BP 145/75; PULSE 84; RESP 17; TEMP 98.1; O2SAT 96
[2017-03-09] MEDS: DEXT 5%-NACL 0.45% 1000 ML INJ 1,000 ML IV SCH (07:45)
[2017-03-09] MEDS: MULTIVITAMINS/MINERALS THERAPEUTIC TAB PO SCH (08:39)
[2017-03-09] MEDS: METOPROLOL TARTRATE 25 MG TAB PO SCH (08:40)
[2017-03-09] MEDS: LISINOPRIL 10 MG TAB PO SCH (08:40)
[2017-03-09] MEDS: FINASTERIDE 5 MG TAB PO SCH (08:40)
[2017-03-09] MEDS: DOCUSATE SODIUM 50 MG/SENNA 8.6 MG TAB PO SCH (08:40)
[2017-03-09] MEDS: SODIUM CHLORIDE 0.9% FLUSH 5 ML FLUSH IVF SCH (08:42)
[2017-03-09 09:30] VITALS: BP 142/61; PULSE 85; RESP 18; TEMP 98; O2SAT 94
[2017-03-09] MEDS ORDERED: METO25TA3 PO (11:27)
[2017-03-09] MEDS ORDERED: LISI10TA3 PO (11:27)
--- NOTE | 2017-03-09 11:28 | HHI.DCPOC ---
Discharge Care Plan Diagnosis: (1) Tibial plateau fracture, left (2) HTN (hypertension) Goals to Promote Your Health * To prevent worsening of your condition and complications * To maintain your health at the optimal level Directions to Meet Your Goals Take your medications as prescribed Follow your dietary instruction Follow activity as directed Keep your appointments as scheduled Take your immunizations and boosters as scheduled If your symptoms worsen call your PCP, if no PCP go to Urgent Care Center or Emergency Room Smoking is Dangerous to Your Health. Avoid second hand smoke Call the 24-hour hour crisis hotline for domestic abuse at Teresa Ventura MD Mar 09, 2017 11:28
--- NOTE | 2017-03-09 11:29 | HHI.FF ---
Face to Face Verification Diagnosis: (1) Tibial plateau fracture, left (2) HTN (hypertension) Physical Therapy Order: Evaluate and Treat, Improve ambulation, Strength and gait training Home Health Nursing Order: Medical education Signs/symptoms of disease process Wound care and dressing changes I have seen patient Andrae Cronin on 03/09/17. My clinical findings support the need for the requested home health care services because: Deconditioned w/ increased weakness Limited ability to care for self I certify that my clinical findings support that this patient is homebound because: Post-op weakness Unsteady gait/balance Teresa Ventura MD Mar 09, 2017 11:29
--- NOTE | 2017-03-09 11:37 | HHI.DS ---
Discharge Summary Admission Date Mar 06, 2017 at 20:49 Discharge Date: Mar 09, 2017 Admitting Diagnosis acute left tibial plateau fracture (1) Tibial plateau fracture, left ICD Code: S82.142A - Displaced bicondylar fracture of left tibia, initial encounter for closed fracture Diagnosis: Principal Status: Acute (2) HTN (hypertension) ICD Code: I10 - Essential (primary) hypertension Diagnosis: Secondary (3) Prostate CA ICD Code: C61 - Malignant neoplasm of prostate Diagnosis: Secondary Procedures See hospital course. Brief History - From Admission This is an 87-year-old male with a PMH of Prostate CA, CAD and Hyperlipidemia who was brought to the ER by EMS secondary to left leg pain after a fall. Patient was apparently up on a ladder approximately 3 steps up when he lost his footing and fell onto his left leg. +head trauma. No LOC. On arrival, BP 156/ 70, HR 92, O2 sat 98% on RA, Afebrile. CBC at baseline. Chemistry unremarkable exam for GFR 55. INR 1.0. CT Head with mild cerebral atrophy, no acute findings. CXR negative. Ankle X-ray Achilles calcaneal spurring, no acute fracture. Knee X-ray acute comminuted mildly displaced fracture involving the lateral tibial plateau. Dr. Magana consulted by ER physician, plan is for surgical intervention in a.m. CBC/BMP: 03/08/17 0600 03/07/17 0404 Significant Findings Laboratory Tests Test 03/06/17 18:30 03/07/17 04:04 03/08/17 06:00 Red Blood Count 3.91 MIL/MM3 (4.50-5.90) 4.02 MIL/MM3 (4.50-5.90) 3.65 MIL/MM3 (4.50-5.90) Hemoglobin 10.6 GM/DL (13.0-17.0) 10.8 GM/DL (13.0-17.0) 9.8 GM/DL (13.0-17.0) Hematocrit 32.0 % (39.0-51.0) 32.8 % (39.0-51.0) 29.7 % (39.0-51.0) Neutrophils (%) (Auto) 81.5 % (16.0-70.0) 88.6 % (16.0-70.0) 85.5 % (16.0-70.0) Lymphocytes (%) (Auto) 8.7 % (9.0-44.0) 7.5 % (9.0-44.0) 8.5 % (9.0-44.0) Lymphocytes # (Auto) 0.7 TH/MM3 (1.0-4.8) 0.8 TH/MM3 (1.0-4.8) 0.8 TH/MM3 (1.0-4.8) Activated Partial Thromboplast Time 20.7 SEC (24.3-30.1) Random Glucose 124 MG/DL (74-106) 133 MG/DL (74-106) Estimat Glomerular Filtration Rate 55 ML/MIN (>89) 52 ML/MIN (>89) Mean Corpuscular Hemoglobin 26.9 PG (27.0-34.0) 26.8 PG (27.0-34.0) Neutrophils # (Auto) 9.1 TH/MM3 (1.8-7.7) 8.2 TH/MM3 (1.8-7.7) Imaging Last Impressions Knee X-Ray 03/07/17 0000 Signed Impressions: Service Date/Time: Tuesday, March 07, 2017 15:31 - CONCLUSION: Status post open rigid internal fixation. Golden Quigley MD Head CT 03/06/171820 Signed Impressions: Service Date/Time: Monday, March 06, 2017 19:32 - CONCLUSION: 1. Mild cerebral atrophy. 2. No acute infarct, acute hemorrhage, mass effect or extra-axial fluid collections. Vahe Saini MD Chest X-Ray 03/06/171820 Signed Impressions: Service Date/Time: Monday, March 06, 2017 19:04 - CONCLUSION: No acute disease. Vahe Saini MD Tibia/Fibula X-Ray 03/06/17 0000 Signed Impressions: Service Date/Time: Monday, March 06, 2017 19:22 - CONCLUSION: 1. Acute mildly displaced left proximal tibial and lateral tibial plateau fracture. Vahe Saini MD Lower Extremity CT 03/06/17 0000 Signed Impressions: Service Date/Time: Monday, March 06, 2017 19:36 - CONCLUSION: 1. Acute mildly displaced comminuted fracture involving the lateral tibial plateau which extends medially into the proximal tibia. There is approximately 9 mm of lateral displacement of the largest fragment of the plateau. 2. Large suprapatellar knee joint effusion with fat fluid level. 3. Acute fracture involving the proximal fibula. 4. Mild degenerative changes involving the patellofemoral joint. Vahe Saini MD Ankle X-Ray 03/06/17 0000 Signed Impressions: Service Date/Time: Monday, March 06, 2017 19:06 - CONCLUSION: Achilles calcaneal spurring. No acute fracture or dislocation. Vahe Saini MD PE at Discharge GENERAL: This is a well-nourished, well-developed patient, in no apparent distress. SKIN: No rashes, warm and dry HEAD: Atraumatic. Normocephalic. EYES: Pupils equal round and reactive. Extraocular motions intact. No scleral icterus. ENT: Nose without bleeding, or drainage, Airway patent. NECK: Trachea midline. Supple CARDIOVASCULAR: Regular rate and rhythm without murmurs, gallops, or rubs. RESPIRATORY: Fair air entry bilaterally. No wheezes, rales, or rhonchi. GASTROINTESTINAL: Abdomen soft, non-tender, nondistended. Positive bowel sounds MUSCULOSKELETAL left knee and stabilizer. Sensation and pulses intact. NEUROLOGICAL: Awake and alert. Moves all extremity. Normal speech.no focal neurological deficit Pt update on day of discharge Follow-up for knee fracture. Patient stated pain is controlled and that he only had one tablet the pain medication yesterday. He had no complaints. He is very anxious to go home today. Dealt with patient's nurse and case management regards to discharge planning. No acute events. Hospital Course 87-year-old male who presented with a fall off a ladder Left Tibial Plateau Fx: - s/p mechanical fall from 3rd step of ladder, +head trauma, no LOC. CT Head w / no acute findings. Knee X-ray w/ acute comminuted mildly displaced fracture of lateral tibial plateau. -Orthopedic consulted and patient had left bicondylar tibial plateau fracture open reduction and internal fixation. -Per orthopedic surgeon they stated to continue the knee immobilizer at all times. He also stated that depending on the healing process may start range of motion between 3-6 weeks. They also wonder Lovenox followed by full dose of aspirin for 1 month, ice to knee when necessary. Follow-up with Dr. Magana in 1 -2 weeks. HTN with sinus tachycardia: -Patient was put on lisinopril and Lopressor. May be exacerbated by pain but unsure since he was hypertensive throughout the hospital course. Patient told to follow-up with his PCP in regards to this. Prostate CA: at baseline, resume home medications. . Pt Condition on Discharge: Stable Discharge Disposition: Disch w/ Home Health Serv Discharge Time: <= 30 minutes Discharge Instructions DIET: Follow Instructions for: Heart Healthy Diet Activities you can perform: Non Weight Bearing Other Activity Instructions: Continue to use knee immobilizer at all times. Depending on healing we may start range of motion summer between 3 and 6 weeks. Ice to the left knee PRN Follow up Referrals: Orthopedics with Mg Magana MD PCP Follow-up - 1 Week SNF/[facility]/ with NURSE PATIENT ATTENDANT [phone]: [address] (Ecotrin Regular Strength) 325 Mg Tabdr 325 MG PO DAILY for Prevent Blood Clot, #30 TAB 0 Refills Start Aspirin after Lovenox is completed. Commode 3-in-1 (Commode 3-in-1) 1 Mis Mis EA .ROUTE DIRECTED, #1 0 Refills Enoxaparin Inj (Enoxaparin Inj) 40 Mg/0.4 Ml Syr 40 MG SQ DAILY for Blood Clot Prevention for 10 Days, #10 SYRINGE 0 Refills Start Aspirin after Lovenox is completed. Hydrocodone-Acetaminophen ([place]) 5-325 mg Tab 1-2 TAB PO Q4H PRN for PAIN, #60 TAB 0 Refills Walker with Front Wheels (Walker with Front Wheels) 1 Mis Mis EA .ROUTE DIRECTED, #1 0 Refills Wheelchair (Wheelchair) 1 Mis Mis EA .ROUTE DIRECTED, #1 0 Refills Lisinopril (Lisinopril) 10 Mg Tab 10 MG PO BID for hypertension, #60 TAB 0 Refills Metoprolol Tartrate (Metoprolol Tartrate) 25 Mg Tab 25 MG PO Q12HR for tachycardia and hypertension, #60 TAB 0 Refills Continued Medications: Dutasteride (Avodart) 0.5 Mg Cap 0.5 MG PO DAILY for Manage Prostate Problems, #30 CAP 0 Refills Discontinued Medications: Aspirin (Adult Low Dose Aspirin EC) 81 Mg Tablet. 81 MG PO DAILY Additional Information Patient was told to resume baby aspirin after he completes the full dose of aspirin as ordered by orthopedic surgeon. Teresa Ventura MD Mar 09, 2017 11:37
[2017-03-09 12:00] VITALS: BP 159/74; PULSE 87; RESP 17; TEMP 98.6; O2SAT 96
--- NOTE | 2017-03-09 13:35 | PD.ORT.PN ---
Subjective Post Op Day #: 2 Subjective Remarks Patient is resting in bed in NAD. Patient reports minimal pain to the LLE Objective Vitals Vital Signs Date Time Temp Pulse Resp B/P (MAP) Pulse Ox O2 Delivery O2 Flow Rate FiO2 03/09/17 09:30 98.0 85 18 142/61 (88) 94 03/09/17 03:43 98.1 84 17 145/75 (98) 96 03/09/17 01:31 Room Air 03/09/17 00:13 97.9 86 18 128/56 (80) 94 03/08/17 22:34 18 03/08/17 19:19 96.7 87 18 168/79 (108) 92 03/08/17 16:00 97.7 89 18 147/68 (94) 93 I/O 03/08/17 03/08/17 03/08/17 03/09/17 03/09/17 03/09/17 07:00 15:00 23:00 07:00 15:00 23:00 Intake Total 240 ml 1440 ml 720 ml 360 ml Output Total 1000 ml 100 ml 200 ml Balance -760 ml 1440 ml 620 ml 160 ml Intake Oral 240 ml 1440 ml 720 ml 360 ml Output Urine Total 1000 ml 100 ml 200 ml # Voids 10 4 # Bowel Movements 0 0 0 Result Diagram: 03/08/17 0600 03/07/17 0404 Procedures Left bicondylar tibial plateau fracture open reduction and internal fixation Objective Remarks Dressing changed with small amount of serosanguineous drainage. Incision is well approximated with surgical clips intact. No redness or s/s of infection. Knee immobilizer is in place. EHL/TA/G intact. 2+ pedal pulse. Calf is soft and nontender. + SILT. Assessment & Plan Ortho Post Op Day #: 2 Problem List: Assessment and Plan POD #2: Left bicondylar tibial plateau fracture open reduction and internal fixation 1. NWB LLE 2. Continue to use knee immobilizer at all times 3. Depending on healing we may start range of motion summer between 3 and 6 weeks. 4. Lovenox followed by ASA for DVT prophylaxis 5. Ice to the left knee PRN 6. F/U with Dr. Magana or CLINT Singh in 1-2 weeks 7. Stable per ortho for discharge home with home health. Plan is for discharge home today. Robbie Jones Mar 09, 2017 13:35
[2017-03-09] MEDS: ENOXAPARIN SODIUM 40 MG/0.4 ML SYRINGE SQ SCH (16:36)
== END 2017-03-09 17:01 | disposition home health service (06) | DRG 494 ==
LOC: NEPE 17:06 → NEDA 20:49 → N06B 21:55
PROVIDERS: ADMIT Family Medicine; ATTEND Family Medicine
PROC: 0QSH04Z Reposition Left Tibia with Internal Fixation Device, Open Approach (ICD-10-PCS; principal; 2017-03-07 13:57)
DX: S82.142A Displaced bicondylar fracture of left tibia, initial encounter for closed fracture (principal); E86.0 Dehydration; I10 Essential (primary) hypertension; I25.10 Atherosclerotic heart disease of native coronary artery without angina pectoris; M77.32 Calcaneal spur, left foot; S01.412A Laceration without foreign body of left cheek and temporomandibular area, initial encounter; S01.312A Laceration without foreign body of left ear, initial encounter; R00.0 Tachycardia, unspecified; W11.XXXA Fall on and from ladder, initial encounter; Z85.46 Personal history of malignant neoplasm of prostate; Z87.891 Personal history of nicotine dependence; Z92.3 Personal history of irradiation; Z95.5 Presence of coronary angioplasty implant and graft
CPT/HCPCS: 70450; 71010; 73560; 73564; 73590; 73610; 73700; 76000; 80048; 80053; 83735; 85025; 85610; 85730; 90471; 90714; 93005; 94150; 96374; 96376; C1713; J0690; J1100; J1580; J1650; J2270; J2370; J2405; J2710; J3010; J3370; J7030; J7120; L1830